=== PATIENT | female | born 1980 | race Two or more races ===

== ENCOUNTER 2020-04-15 11:18 | Emergency (ER) | payer OTHER ==
[~2020-04-15] VITALS: Ht 149.9 cm; Wt 59.0 kg
[2020-04-15] MEDS ORDERED: ANALPRAM HC 1%30 GM (11:30)
== END 2020-04-15 12:54 | disposition home or self-care (01) ==
LOC: ER 11:18
DX: K64.8 Other hemorrhoids (principal)

== ENCOUNTER 2020-06-07 05:59 | Day surgery (SDC) | payer OTHER ==
[~2020-06-07 05:59] MED LIST: ANALPRAM HC 1%30 GM; BIOTIN5000 MCG PO; MAGNESIUM400 MG PO; MIRALAX17 GM PO; PREVACID15 MG PO; TEMAZEPAM15 MG PO
== END 2020-06-07 17:10 | disposition home or self-care (01) ==
LOC: CIR.AMB 05:59
PROVIDERS: ATTEND Surgery
DX: K60.0 Acute anal fissure (principal); Z20.822 Contact with and (suspected) exposure to COVID-19; K62.4 Stenosis of anus and rectum